=== PATIENT | female | born 1945 | race Caucasian/White ===

== ENCOUNTER 2017-04-13 12:46 | Emergency (ER) | payer MEDICARE, OTHER ==
--- NOTE | ~2017-04-13 | ER ---
PATIENT'S NAME: [facility] AGE: 71 Y [address] ROOM: [place] [id number] LOCATION: [facility] ADMIT DATE: 04/13/2017 ER/Outpatient Report DISCHARGE DATE: 04/13/2017 FAMILY PHYSICIAN: Hugo Olivas MD ATTENDING PHYSICIAN: Yony Ghotra TIME OF ARRIVAL: 1246 hours. TIME OF EVALUATION: 1247 hours. CHIEF COMPLAINT: Left foot injury. HISTORY OF PRESENT ILLNESS: The patient is a 71-year-old female, who presents to the emergency department today chief complaint of left foot injury. She reports she was going down some stairs when she slipped and rolled her ankle. She reports some swelling in the left side of her ankle on the outside. She has not hit her head. No loss of consciousness. No neck or back pain. She denies any fevers, chills, nausea, vomiting, diarrhea, or constipation. No headache. Pain is currently 6/10 in severity. It is sharp. It is worse with movement in the left leg and left foot. PAST MEDICAL HISTORY: Ota-fghpxch-zrafiplfy diabetes. PAST SURGICAL HISTORY: None reported. SOCIAL HISTORY: The patient denies any tobacco, alcohol, or illicit drug use. ALLERGIES: PENICILLIN. MEDICATIONS: Please see list. PRIMARY CARE DOCTOR: Hugo Olivas MD. REVIEW OF SYSTEMS: All systems are reviewed by myself and negative with the exception of those PATIENT'S NAME: [facility] AGE: 71 Y [address] ROOM: [place] [id number] LOCATION: [facility] ADMIT DATE: 04/13/2017 ER/Outpatient Report DISCHARGE DATE: 04/13/2017 FAMILY PHYSICIAN: Hugo Olivas MD ATTENDING PHYSICIAN: Yony Ghotra discussed in HPI and past medical history. PHYSICAL EXAMINATION: VITAL SIGNS: Weight 84 kg, blood pressure 152/84, pulse 73, respiratory rate 16, temperature 98.7, oxygen saturation 97% on room air. GENERAL: The patient is a 71-year-old female who appears stated age, in no acute distress. HEENT: Normocephalic, atraumatic. Pupils are equal, round, and reactive to light. NECK: Supple. There is no midline tenderness to palpation. No step-offs or deformities. CARDIOVASCULAR: Regular rate and rhythm. No murmurs, rubs, or gallops. LUNGS: Clear to auscultation bilaterally. No wheezes, rales, or rhonchi. ABDOMEN: Soft, nontender, and nondistended. No rebound, rigidity, or guarding. MUSCULOSKELETAL: The patient has some tenderness to palpation in the left foot and left ankle, lateral aspect of the lateral nerve. No other bony tenderness to palpation is noted. LABORATORY DATA AND X-RAYS: Labs and x-rays are obtained. X-ray of the left foot and left ankle were obtained. They were negative for acute fracture or dislocation as interpreted by myself. IMPRESSION: 1. Acute talofibular ligament sprain. 2. Initial visit. EMERGENCY DEPARTMENT COURSE: The patient brought back to the examination room. Seen and evaluated by myself. X-rays are obtained as described above. The patient is given one Humphreys tablet for pain. I have discussed results with the patient and her sister at the bedside. I have recommended rest, ice, compression elevation. We have placed the patient in Tab wrap. She is to follow up with the primary care doctor in 2 days for re-evaluation. DISPOSITION: The patient was discharged home in good condition. DO FROY STREETER/tian PATIENT'S NAME: BABITA RODGERS [facility] AGE: 71 Y [address] ROOM: [place] [id number] LOCATION: [facility] ADMIT DATE: 04/13/2017 ER/Outpatient Report DISCHARGE DATE: 04/13/2017 FAMILY PHYSICIAN: Hugo Olivas MD ATTENDING PHYSICIAN: Yony Ghotra /[id number] d: 04/13/17 1735 t: 04/14/17 0908, OUTPATIENT REPORT
== END 2017-04-13 13:53 | disposition disaster alternative care site (69) ==
LOC: GACC 12:46
DX: S93.492A Sprain of other ligament of left ankle, initial encounter (principal); E11.9 Type 2 diabetes mellitus without complications; Z79.84 Long term (current) use of oral hypoglycemic drugs; Z79.899 Other long term (current) drug therapy; Z88.0 Allergy status to penicillin; X50.9XXA Other and unspecified overexertion or strenuous movements or postures, initial encounter; M25.551 Pain in right hip